=== PATIENT | female | born 1975 | race African-American/Black ===

== ENCOUNTER 2017-04-23 23:32 | Emergency (ER) | payer OTHER ==
[~2017-04-23] VITALS: Ht 162.6 cm; Wt 71.2 kg
[2017-04-23 23:32] VITALS: BP 130/71
[2017-04-24] MEDS ORDERED: ASPIRIN 81 MG TAB.CHEW PO ONE (00:30)
[2017-04-24] MEDS ORDERED: IV NORMAL SALINE 500ML 500 ML IV ONE (00:30)
[2017-04-24] MEDS ORDERED: HYDROmorphone PF 1 MG/ML DISP.SYRIN IV ONE (00:30)
[2017-04-24] MEDS ORDERED: ONDANSETRON PF 4 MG/2 ML VIAL. IV ONE (00:30)
--- NOTE | 2017-04-24 00:59 | PHYS DOC ---
Past History Past Medical History: Anxiety, Depression Past Surgical History: No Surgical History Smoking: Non-smoker Alcohol Use: None Drug Use: None Adult General Chief Complaint Chief Complaint: GENERALIZED BODY ACHES HPI HPI 41-year-old female presenting to the emergency department today with epigastric abdominal pain is been present over the past 24-48 hours. It is a no overlying aching pain that is nonradiating intermittent and without alleviating or exacerbating factors. It is associated with generalized muscle aches. She has a history of MS and takes her medication as prescribed. She denies any changes in her MS symptoms. She denies worsening weakness numbness or tingling. She denies vision changes or dysarthria. Review of systems is negative for nausea vomiting fevers chills. She denies dark stools, shortness of breath or cough. All other review of systems is negative unless otherwise noted in history of present illness. ED course: 41-year-old female presenting to the emergency department with epigastric abdominal pain. Triage vital signs afebrile with normal blood pressure. Heart rate normal. Respiratory rate normal. Pertinent physical exam findings showed a soft nontender abdomen. Negative McBurney's point. Negative Ardon sign. Otherwise unremarkable exam. Labs obtained along with EKG.EKG shows sinus rhythm with regular rate. Normal intervals. Normal axis. ST segments are congruent. Not suggestive of ACS. Reviewed by myself. Chest x-ray obtained.Chest x-ray reviewed by myself shows no obvious infiltrate or pneumothorax present. No obvious acute cardiopulmonary process present. blood work obtained. Patient's workup was unremarkable. She was subsequently discharged home to follow-up with her PCP. The patient was then discharged home in stable condition to follow up with their primary care physician over the next 2-3 days. They were to return if their symptoms worsened or if they were concerned for any reason. [id number] discharge instructions and return precautions were given. Patient's questions were answered to their satisfaction. Patient is comfortable plan. Review of Systems Review of Systems SEE ABOVE. Current Medications Current Medications Current Medications Medications (Trade) Dose Ordered Sig/Rodney Start Time Stop Time Status Last Admin Dose Admin Aspirin (Children'S Aspirin) 324 mg 1X ONCE 04/24/17 00:15 04/24/17 00:16 UNV Hydromorphone HCl (Dilaudid) 0.5 mg 1X ONCE 04/24/17 00:15 04/24/17 00:16 UNV Ondansetron HCl (Zofran) 4 mg 1X ONCE 04/24/17 00:15 04/24/17 00:16 UNV Sodium Chloride 500 ml @ 0 mls/hr 1X ONCE 04/24/17 00:15 04/24/17 00:16 UNV Allergies Allergies Allergies Coded Allergies Type Severity Reaction Last Updated Verified No Known Drug Allergies 10/24/14 No Physical Exam Physical Exam Constitutional: Well developed, well nourished, no acute distress, non-toxic appearance. [] HENT: Normocephalic, atraumatic, bilateral external ears normal, oropharynx moist, no oral exudates, nose normal. [] Eyes: PERRLA, EOMI, conjunctiva normal, no discharge. [] Neck: Normal range of motion, no tenderness, supple, no stridor. [] Cardiovascular:Heart rate regular rhythm, no murmur [] Lungs & Thorax: Bilateral breath sounds clear to auscultation [] Abdomen: Bowel sounds normal, soft, no tenderness, no masses, no pulsatile masses. [] Skin: Warm, dry, no erythema, no rash. [] Back: No tenderness, no CVA tenderness. [] Extremities: No tenderness, no cyanosis, no clubbing, ROM intact, no edema. [] Neurologic: Alert and oriented X 3, normal motor function, normal sensory function, no focal deficits noted. [] Psychologic: Affect normal, judgement normal, mood normal. [] Current Patient Data Vital Signs Vital Signs Date Time Temp Pulse Resp B/P (MAP) Pulse Ox O2 Delivery O2 Flow Rate FiO2 04/23/17 23:32 98.4 67 20 98 Room Air EKG EKG [] Radiology/Procedures Radiology/Procedures [] Course & Med Decision Making Course & Med Decision Making Pertinent Labs and Imaging studies reviewed. (See chart for details) [] Dragon Disclaimer Dragon Disclaimer This chart was dictated in whole or in part using Voice Recognition software in a busy, high-work load, and often noisy Emergency Department environment. It may contain unintended and wholly unrecognized errors or omissions. Departure Departure: Impression: Primary Impression: Epigastric abdominal pain Disposition: HOME, SELF-CARE Condition: STABLE Referrals: CLINTON VIDALES DO (PCP) Patient Instructions: Abdominal Pain (Nonspecific) Additional Instructions: Thank you for allowing us to participate in your care today. Followup with your primary care physician in 3 days if your symptoms do not improve. Call your Primary Doctor tomorrow and inform them of your visit today. If you do not have a primary care provider you can ask for a list of our primary care providers. Return to the emergency department you have any new or concerning findings. This should be evaluated by the primary care physician and any necessary consulting services for continued management within a few days after discharge. Return to emergency room if you have any new or concerning symptoms including but not limited to fever, chills, nausea, vomiting, intractable pain, any new rashes, chest pain, shortness of air, uncontrolled bleeding, difficulty breathing, and/or vision loss. You may have been prescribed medication that can change in your level of thinking and ability to operate machinery. These medications include hydrocodone and Ativan. Also, Benadryl has been known to do this as well. Be sure to check with your pharmacist and ask if the medications you've prescribed can affect your level of consciousness. I recommend not operating heavy machinery or driving while on medication such as these. Scripts Ondansetron Hcl (ZOFRAN) 4 Mg Tablet 1 TAB PO PRN Q6HRS Y for NAUSEA, #6 TAB Prov: CARLY PEREZ MD 04/24/17 Hydrocodone Bit/Acetaminophen (HYDROCODONE-APAP 5-325 ) 1 Each Tablet 1 TAB PO PRN Q6HRS Y for PAIN, #15 TAB 0 Refills Prov: CARLY PEREZ MD 04/24/17 CARLY PEREZ MD Apr 24, 2017 00:59
[2017-04-24 01:56] LABS: BASO % 0 % (0-3); EOS # 0.5 x10^3/uL (0.0-0.7); EOS % 6 % (0-3); HEMATOCRIT 36.3 % (36.0-47.0); HEMOGLOBIN 12.4 g/dL (12.0-15.5); LYMPH # 2.3 x10^3/uL (1.0-4.8); LYMPH % 30 % (24-48); MEAN CORPUSCULAR HEMOGLOBIN 28 pg (25-35); MEAN CORPUSCULAR HGB CONC 34 g/dL (31-37); MEAN CORPUSCULAR VOLUME 83 fL (79-100); MONO # 0.6 x10^3/uL (0.0-1.1); MONO % 7 % (0-9); NEUT # 4.5 x10^3uL (1.8-7.7); NEUT % 57 % (31-73); PLATELET COUNT 188 x10^3/uL (140-400); RED BLOOD COUNT 4.39 x10^6/uL (3.50-5.40); RED CELL DISTRIBUTION WIDTH 13.6 % (11.5-14.5); WHITE BLOOD COUNT 7.9 x10^3/uL (4.0-11.0)
[2017-04-24 02:05] LABS: ALBUMIN 3.8 g/dL (3.4-5.0); CALCIUM 8.8 mg/dL (8.5-10.1); CREATININE 0.7 mg/dL (0.6-1.0); DIRECT BILIRUBIN 0.1 mg/dL (0.0-0.2); GFR 112.1; POTASSIUM 3.5 mmol/L (3.5-5.1); TOTAL BILIRUBIN 0.5 mg/dL (0.2-1.0); TOTAL PROTEIN 7.4 g/dL (6.4-8.2)
[2017-04-24 03:08] LABS: BILIRUBIN,URINE NEG (NEG); CLARITY,URINE HAZY; COLOR,URINE STRAW; GLUCOSE,URINE NEG (NEG)
[2017-04-24 03:09] LABS: AMORPHOUS SEDIMENT,UR PRESENT /HPF; BACTERIA,URINE FEW /HPF (0-FEW); NITRITE,URINE NEG (NEG); RBC,URINE 0 /HPF (0-2); SQUAMOUS EPITHELIAL CELL,UR MOD /LPF; UROBILINOGEN,URINE 0.2 mg/dL (0.2 mg/dL); WBC,URINE 0 /HPF (0-4)
[2017-04-24] MEDS ORDERED: HYDR-2758 PO (03:21)
[2017-04-24] MEDS ORDERED: ONDA4TAB7 PO (03:21)
--- NOTE | 2017-04-24 07:10 | EKG ---
[address] [address] Test Date: 2017-04-24 Test Time: 00:34:47 Pat Name: FLOYD GALLAGHER Department: Room: Gender: F [employer]: JG : 1975 Requested By: CARLY PEREZ Order Number: [id number] Reading MD: Measurements Intervals Spicer Rate: 62 P: 42 MO: 142 QRS: 35 QRSD: 86 T: 13 QT: 402 QTc: 410 Interpretive Statements SINUS RHYTHM QRS(T) CONTOUR ABNORMALITY CONSIDER ANTEROLATERAL MYOCARDIAL DAMAGE RI6.01 Unconfirmed report No previous ECG available for comparison
--- NOTE | 2017-04-24 07:16 | RAD ---
Portable chest, 04/24/2017: History: Chest wall pain Comparison is made to a study from 10/24/2014. The heart size and pulmonary vascularity are normal. No pulmonary infiltrates are seen. There is no evidence of pleural fluid or pneumothorax. IMPRESSION: No acute cardiopulmonary abnormality is detected.
[2017-04-25] MEDS ORDERED: METO10TA81 PO (11:36)
== END 2017-04-24 03:45 | disposition home or self-care (01) ==
LOC: ER 23:32
DX: R10.13 Epigastric pain (principal); M79.1 Myalgia; F41.9 Anxiety disorder, unspecified
CPT/HCPCS: 36415; 71010; 80048; 80076; 81001; 81025; 83690; 84484; 85027; 93005; 96361; 96374; 96375; 99285; J1170; J2405; J7040

== ENCOUNTER 2017-04-25 08:33 | Emergency (ER) | payer OTHER ==
[~2017-04-25 08:33] MED LIST: HYDR-2758 PO; ONDA4TAB7 PO
[2017-04-25] MEDS ORDERED: IV NORMAL SALINE 1,000ML 1,000 ML IV ONE (09:00)
[2017-04-25] MEDS: fentaNYL PF 100 MCG/2 ML VIAL IV PRN ×2 (09:10→10:58)
[2017-04-25 09:17] LABS: BASO % 0 % (0-3); EOS # 0.3 x10^3/uL (0.0-0.7); EOS % 4 % (0-3); HEMATOCRIT 36.6 % (36.0-47.0); HEMOGLOBIN 12.6 g/dL (12.0-15.5); LYMPH # 2.5 x10^3/uL (1.0-4.8); LYMPH % 32 % (24-48); MEAN CORPUSCULAR HEMOGLOBIN 28 pg (25-35); MEAN CORPUSCULAR HGB CONC 35 g/dL (31-37); MEAN CORPUSCULAR VOLUME 82 fL (79-100); MONO # 0.5 x10^3/uL (0.0-1.1); MONO % 6 % (0-9); NEUT # 4.7 x10^3uL (1.8-7.7); NEUT % 59 % (31-73); PLATELET COUNT 179 x10^3/uL (140-400); RED BLOOD COUNT 4.45 x10^6/uL (3.50-5.40); RED CELL DISTRIBUTION WIDTH 13.6 % (11.5-14.5)
--- NOTE | 2017-04-25 09:20 | EKG ---
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
[2017-04-25] MEDS ORDERED: ONDANSETRON PF 4 MG/2 ML VIAL. IV ONE (09:30)
[2017-04-25 09:32] LABS: ALBUMIN 3.9 g/dL (3.4-5.0); ALBUMIN/GLOBULIN RATIO 1.1 (1.0-1.7); CALCIUM 8.6 mg/dL (8.5-10.1); CREATININE 0.8 mg/dL (0.6-1.0); GFR 96.1; POTASSIUM 3.7 mmol/L (3.5-5.1); TOTAL BILIRUBIN 0.6 mg/dL (0.2-1.0); TOTAL PROTEIN 7.6 g/dL (6.4-8.2)
[2017-04-25 09:45] VITALS: BP 124/82
--- NOTE | 2017-04-25 09:58 | RAD ---
Abdominal ultrasound, 04/25/2017: History: Right upper quadrant abdominal pain There is a small echogenic focus along the wall of the gallbladder measuring approximately 5 mm. There is no posterior acoustic shadowing. It is nonmobile. The appearance is that of a small polyp. No gallstones are seen. No bile duct dilatation is evident. The visualized portions of the liver, spleen and both kidneys are unremarkable. The pancreatic body is unremarkable. Other portions of the pancreas were obscured by overlying bowel. The abdominal aorta and inferior vena cava show no abnormality. No free fluid is evident in the abdomen. IMPRESSION: 1. Small gallbladder polyp. 2. The abdominal ultrasound is otherwise unremarkable.
[2017-04-25 10:55] LABS: BILIRUBIN,URINE SMALL (NEG); CLARITY,URINE HAZY; COLOR,URINE AMBER; GLUCOSE,URINE NEG (NEG); NITRITE,URINE NEG (NEG); UROBILINOGEN,URINE 4 mg/dL (0.2 mg/dL)
[2017-04-25 10:56] LABS: BACTERIA,URINE MOD /HPF (0-FEW); SQUAMOUS EPITHELIAL CELL,UR MOD /LPF
--- NOTE | 2017-04-25 11:31 | PHYS DOC ---
Past History Past Medical History: Anxiety, Depression Past Surgical History: No Surgical History Smoking: Non-smoker Alcohol Use: None Drug Use: None Adult General Chief Complaint Chief Complaint: NAUSEA/VOMITING/DIARRHEA HPI HPI Patient is a 41 year old female who presents with vomiting & abdominal pain. The patient reports three-day history of vomiting and of upper abdominal pain associated with chest pain. She was seen here 2 days ago for similar symptoms, continues to have persistent vomiting with last episode yesterday, not tolerating by mouth. Pain is also localized to right upper quadrant, having less severe chest pain today. Denies fevers or chills, hematemesis, diarrhea or constipation, hematochezia or melena, dysuria or hematuria. Denies history of abdominal surgeries. Given prescriptions for Zofran and Stryker at her last emergency department visit. Review of Systems Review of Systems Constitutional: Denies fever or chills Eyes: Denies change in visual acuity HENT: Denies nasal congestion or sore throat Respiratory: Denies cough or shortness of breath Cardiovascular: Denies chest pain or edema GI: Reports abdominal pain, nausea, vomiting, denies bloody stools or diarrhea : Denies dysuria or hematuria Musculoskeletal: Denies back pain or joint pain Integument: Denies rash or skin lesions Neurologic: Denies headache, focal weakness or sensory changes Current Medications Current Medications Current Medications Medications (Trade) Dose Ordered Sig/Rodney Start Time Stop Time Status Last Admin Dose Admin Fentanyl Citrate (Fentanyl 2ml Vial) 50 mcg PRN Q15MIN PRN 04/25/17 09:30 04/26/17 09:29 04/25/17 10:58 50 MCG Ondansetron HCl (Zofran) 4 mg 1X ONCE 04/25/17 09:30 04/25/17 09:31 DC 04/25/17 09:10 4 MG Sodium Chloride 1,000 ml @ 1,000 mls/hr 1X ONCE 04/25/17 09:00 04/25/17 09:59 DC 04/25/17 09:10 1,000 MLS/HR Allergies Allergies Allergies Coded Allergies Type Severity Reaction Last Updated Verified No Known Drug Allergies 10/24/14 No Physical Exam Physical Exam Constitutional: Well developed, well nourished, no acute distress, non-toxic appearance. HENT: Normocephalic, atraumatic, bilateral external ears normal, oropharynx moist, nose normal. Eyes: conjunctiva normal, no discharge. Neck: supple, no stridor. Cardiovascular: RRR, no murmurs, no edema. Lungs & Thorax: LCTAB, no wheezing, no respiratory distress. Abdomen: normal bowel sounds, soft, RUQ tenderness without rebound/guarding, no masses or pulsatile masses, nondistended. Skin: Warm, dry, no erythema, no rash. Back: No CVA tenderness. Extremities: No tenderness, no edema. Neurologic: Alert and oriented X 3, no focal deficits noted. Psychologic: Affect normal, judgement normal, mood normal. Current Patient Data Vital Signs Vital Signs Date Time Temp Pulse Resp B/P (MAP) Pulse Ox O2 Delivery O2 Flow Rate FiO2 04/25/17 10:58 16 100 Room Air Lab Results Laboratory Tests Test 04/25/17 09:05 04/25/17 10:29 04/25/17 10:39 White Blood Count 8.0 x10^3/uL (4.0-11.0) Red Blood Count 4.45 x10^6/uL (3.50-5.40) Hemoglobin 12.6 g/dL (12.0-15.5) Hematocrit 36.6 % (36.0-47.0) Mean Corpuscular Volume 82 fL (79-100) Mean Corpuscular Hemoglobin 28 pg (25-35) Mean Corpuscular Hemoglobin Concent 35 g/dL (31-37) Red Cell Distribution Width 13.6 % (11.5-14.5) Platelet Count 179 x10^3/uL (140-400) Neutrophils (%) (Auto) 59 % (31-73) Lymphocytes (%) (Auto) 32 % (24-48) Monocytes (%) (Auto) 6 % (0-9) Eosinophils (%) (Auto) 4 % (0-3) H Basophils (%) (Auto) 0 % (0-3) Neutrophils # (Auto) 4.7 x10^3uL (1.8-7.7) Lymphocytes # (Auto) 2.5 x10^3/uL (1.0-4.8) Monocytes # (Auto) 0.5 x10^3/uL (0.0-1.1) Eosinophils # (Auto) 0.3 x10^3/uL (0.0-0.7) Basophils # (Auto) 0.0 x10^3/uL (0.0-0.2) Sodium Level 141 mmol/L (136-145) Potassium Level 3.7 mmol/L (3.5-5.1) Chloride Level 104 mmol/L (98-107) Carbon Dioxide Level 27 mmol/L (21-32) Anion Gap 10 (6-14) Blood Urea Nitrogen 5 mg/dL (7-20) L Creatinine 0.8 mg/dL (0.6-1.0) Estimated GFR (Cockcroft-Gault) 96.1 BUN/Creatinine Ratio 6 (6-20) Glucose Level 88 mg/dL (70-99) Calcium Level 8.6 mg/dL (8.5-10.1) Total Bilirubin 0.6 mg/dL (0.2-1.0) Aspartate Amino Transferase (AST) 30 U/L (15-37) Alanine Aminotransferase (ALT) 46 U/L (14-59) Alkaline Phosphatase 77 U/L (46-116) Troponin I Quantitative < 0.017 ng/mL (0-0.055) Total Protein 7.6 g/dL (6.4-8.2) Albumin 3.9 g/dL (3.4-5.0) Albumin/Globulin Ratio 1.1 (1.0-1.7) Lipase 160 U/L (73-393) Urine Collection Type Unknown Urine Color Antonette Urine Clarity Hazy Urine pH 7.0 Urine Specific Cooter 1.015 Urine Protein Neg (NEG-TRACE) Urine Glucose (UA) Neg mg/dL (NEG) Urine Ketones (Stick) >=160 mg/dL (NEG) Urine Blood Neg (NEG) Urine Nitrite Neg (NEG) Urine Bilirubin Small (NEG) Urine Urobilinogen Dipstick 4 mg/dL (0.2 mg/dL) Urine Leukocyte Esterase Trace (NEG) Urine RBC 1-2 /HPF (0-2) Urine WBC 1-4 /HPF (0-4) Urine Squamous Epithelial Cells Mod /LPF Urine Bacteria Mod /HPF (0-FEW) Urine Mucus Slight /LPF POC Urine HCG, Qualitative hcg negative (Negative) EKG EKG interpreted by me: Normal sinus rhythm rate 58, no acute ST or T wave changes, normal intervals, PAC Radiology/Procedures Radiology/Procedures PROCEDURE: ABDOMEN COMPLETE Abdominal ultrasound, 04/25/2017: History: Right upper quadrant abdominal pain There is a small echogenic focus along the wall of the gallbladder measuring approximately 5 mm. There is no posterior acoustic shadowing. It is nonmobile. The appearance is that of a small polyp. No gallstones are seen. No bile duct dilatation is evident. The visualized portions of the liver, spleen and both kidneys are unremarkable. The pancreatic body is unremarkable. Other portions of the pancreas were obscured by overlying bowel. The abdominal aorta and inferior vena cava show no abnormality. No free fluid is evident in the abdomen. IMPRESSION: 1. Small gallbladder polyp. 2. The abdominal ultrasound is otherwise unremarkable. DICTATED AND SIGNED BY: MAVIS DONG MD DATE: 04/25/17 0953 [] Course & Med Decision Making Course & Med Decision Making Pertinent Labs and Imaging studies reviewed. (See chart for details) The patient presents with abdominal pain and vomiting. Gave IV fluids, pain medication, antiemetics. Labs unremarkable as above other than ketonuria. Patient felt better after treatment here. Ultrasound negative for cholelithiasis or cholecystitis. She has a polyp which I did inform her. She was comfortable with discharge home. Recommend rest, by mouth hydration with small sips of clear liquid, provided prescription for Reglan addition to the Zofran she already has. Continue taking Stryker as needed for severe pain. Off with primary care physician in 2-3 days. Return to the emergency department for severe pain, uncontrolled vomiting, high fever, any otherwise worsening condition. Discharged home in stable condition. [] Dragon Disclaimer Dragon Disclaimer This chart was dictated in whole or in part using Voice Recognition software in a busy, high-work load, and often noisy Emergency Department environment. It may contain unintended and wholly unrecognized errors or omissions. Departure Departure: Impression: Primary Impression: Abdominal pain Additional Impression: Nausea & vomiting Disposition: 01 HOME, SELF-CARE Condition: STABLE Referrals: CLINTON VIDALES DO (PCP) Patient Instructions: Abdominal Pain, [id number] Additional Instructions: You were seen in the emergency department today for abdominal pain and vomiting. Labs and ultrasound did not show serious cause of symptoms. The ultrasound did show a polyp on the gallbladder so follow-up with primary care physician regarding this finding. Continue to take Zofran or nausea and Stryker for pain, use Reglan as needed if still nauseated. Drink small sips of clear liquids to stay hydrated. Follow-up with primary care physician in 2-3 days. Return to the emergency department for high fever, severe pain, uncontrolled vomiting, any otherwise worsening condition. Scripts Metoclopramide Hcl (REGLAN) 10 Mg Tablet 10 MG PO BID Y for NAUSEA, #10 TAB Prov: ZECHARIAH SRINIVASAN MD 04/25/17 Problem Qualifiers ZECHARIAH SRINIVASAN MD Apr 25, 2017 11:31
[2017-04-25] MEDS ORDERED: METO10TA81 PO (11:36)
== END 2017-04-25 12:25 | disposition home or self-care (01) ==
LOC: ER 08:33
DX: R10.11 Right upper quadrant pain (principal); R11.2 Nausea with vomiting, unspecified; R07.9 Chest pain, unspecified
CPT/HCPCS: 36415; 76700; 80053; 81001; 81025; 83690; 84484; 85027; 87086; 93005; 96361; 96374; 96375; 96376; 99285; J2405; J3010; J7030